=== PATIENT | female | born 1940 | race Two or more races ===

== ENCOUNTER 2018-04-13 08:56 | Outpatient (CLI) | payer OTHER ==
[~2018-04-13 08:56] MED LIST: HYZAAR 100-121 UDTAB PO; LOTREL 10-20 MG1 CAP PO; RANITIDINE H15 MG/ML PO; SYNTHROID125 MCG; [UNRECOGNIZED DRUG - OTHER] PO
== END 2018-04-13 09:11 | disposition home or self-care (01) ==
LOC: NUCLEAR 08:56
DX: R41.3 Other amnesia (principal)
CPT/HCPCS: 78814; A9552